=== PATIENT | female | born 1990 | race Hispanic/Latino ===

== ENCOUNTER 2020-08-10 09:33 | Outpatient (CLI) | payer BC ==
--- NOTE | 2020-08-10 11:51 | ULT ---
ABDOMINAL ULTRASOUND: History: Abdominal pain FINDINGS: Real-time imaging of the upper abdomen was performed. This shows echogenic foci with shadowing from t he region of the gallbladder fossa. This is most compatible with a contracted gallbladder with stones . The common bile duct is 5 mm. Liver measures 16 cm in length and shows no focal abnormalities. The sp gregg is 10.7 cm. Right and left kidneys are within normal limits for size and not obstructed. The pancreas is obscured . The abdominal aorta and IVC regions are unremarkable. IMPRESSION: Dense shadowing from the region of the gallbladder fossa. This is most compatible with a contracted g allbladder with gallstones. Normal caliber common duct. POS: [facility] [place]
== END 2020-08-10 09:34 | disposition home or self-care (01) ==
LOC: BICULT 09:33
PROVIDERS: ATTEND Internal Medicine
DX: R10.11 Right upper quadrant pain (principal); R10.13 Epigastric pain; R19.7 Diarrhea, unspecified
CPT/HCPCS: 36415; 80053; 80061; 82306; 84443; 85025; 93975

== ENCOUNTER 2023-07-25 10:42 | Emergency (ER) | payer BC ==
[2023-07-25] MEDS ORDERED: Diazepam 10 MG/2 ML SYRINGE ONE (11:44)
== END 2023-07-25 13:13 | disposition home or self-care (01) ==
LOC: ERS 10:42
DX: G47.00 Insomnia, unspecified (principal); Z79.899 Other long term (current) drug therapy
CPT/HCPCS: 96372; 99283; J3360

== ENCOUNTER 2023-08-21 17:00 | Outpatient (CLI) | payer BC | END 2023-08-21 17:01 | disposition home or self-care (01) | LOC: SLEEPLAB 17:00 | PROVIDERS: ATTEND Physician Assistant | DX: G47.9 Sleep disorder, unspecified (principal); G47.00 Insomnia, unspecified; G47.33 Obstructive sleep apnea (adult) (pediatric) | CPT/HCPCS: 95810 ==

== ENCOUNTER 2024-09-06 16:48 | Outpatient (CLI) | payer BC | END 2024-09-06 16:49 | disposition home or self-care (01) | LOC: RAD 16:48 | PROVIDERS: ATTEND Nurse Practitioner Family | DX: M25.531 Pain in right wrist (principal) ==

== ENCOUNTER 2024-09-08 15:36 | Outpatient (CLI) | payer BC | END 2024-09-08 15:37 | disposition home or self-care (01) | LOC: BICULT 15:36 | PROVIDERS: ATTEND Nurse Practitioner Family | DX: R60.0 Localized edema (principal) | CPT/HCPCS: 93970 ==